=== PATIENT | female | born 1965 | race Asian ===

== ENCOUNTER 2023-11-17 13:54 | Emergency (ER) | payer OTHER ==
[2023-11-17 14:06] VITALS: BP 158/86; PULSE 96; RESP 18; TEMP 97.6; BMI 28.8
[2023-11-17] MEDS ORDERED: ACETAMINOPHEN INJECTION 100 ML IVPB ONE (15:26)
[2023-11-17] MEDS ORDERED: FAMOTIDINE 10 MG/ML VIAL IVPB ONE (15:27)
[2023-11-17 15:31] LABS: BASO % 0.3 % (0-2.0); EOS % 0.2 % (0-4.5); HEMOGLOBIN 13.7 GM/dL (10.7-15.3); LYMPH % 13.7 % (8-40); MCH 30.1 pg (25.7-33.7); MCHC 35.1 g/dl (32.0-36.0); MEAN CELL VOLUME 85.9 fl (80-96); MEAN PLT VOLUME 6.7 fl (7.5-11.1); MONO % 5.1 % (3.8-10.2); NEUT % 80.7 % (42.8-82.8); PLATELET COUNT 315 10^3/uL (134-434); RBC 4.54 M/mm3 (3.60-5.2); RDW 13.3 % (11.6-15.6); WHITE BLOOD COUNT 10.3 K/mm3 (4.0-10.0)
[2023-11-17] MEDS: ACETAMINOPHEN 1000 MG/100 ML BAG IVPB ONE (15:36)
[2023-11-17] MEDS: LACTATED RINGERS SOLUTION 1000 ML INFUS.BAG IV ONE (15:36)
[2023-11-17] MEDS: FAMOTIDINE 20 MG/50 ML IVPB 20 MG/50 ML MG IVPB ONE (15:37)
[2023-11-17 15:51] LABS: POTASSIUM 3.5 mmol/L (3.5-5.1)
[2023-11-17 15:53] LABS: CALCIUM 9.6 mg/dL (8.5-10.1)
[2023-11-17 15:54] LABS: ALBUMIN 4.7 g/dl (3.4-5.0); BLOOD UREA NITROGEN 11.6 mg/dL (7-18); MAGNESIUM 2.2 mg/dL (1.8-2.4)
[2023-11-17 15:57] LABS: CREATININE 0.7 mg/dL (0.55-1.3)
[2023-11-17 15:58] LABS: BILIRUBIN,TOTAL 0.8 mg/dL (0.2-1)
[2023-11-17 15:59] LABS: TOT PROT 8.5 g/dl (6.4-8.2)
[2023-11-17] MEDS ORDERED: MAG HYDROX/AL HYDROX/SIMETH 30 ML UNIT-DOSE CUP ONE (18:14)
[2023-11-17] MEDS ORDERED: PANTOPRAZOLE 40 MG TABLET PO ONE (18:14)
[2023-11-17] MEDS: PANTOPRAZOLE 20 MG TABLET PO ONE (18:15)
[2023-11-17] MEDS: MAG HYDROX/AL HYDROX/SIMETH 30 ML UNIT-DOSE CUP PO ONE (18:15)
== END 2023-11-17 20:05 | disposition home or self-care (01) ==
LOC: JER 13:54
PROC: 3E033GC Introduction of Other Therapeutic Substance into Peripheral Vein, Percutaneous Approach (ICD-10-PCS; principal; 2023-11-17)
PROC: 3E033NZ Introduction of Analgesics, Hypnotics, Sedatives into Peripheral Vein, Percutaneous Approach (ICD-10-PCS; 2023-11-17)
DX: R10.13 Epigastric pain (principal)
CPT/HCPCS: 36415; 71045-TC-FY; 76705-TC; 80053; 83690; 83735; 84484; 85025; 93005; 93010; 99285-25; J0131

== ENCOUNTER 2023-11-23 04:22 | Day surgery (SDC) | payer OTHER ==
[2023-11-22 13:14] VITALS: BMI 24.5
[2023-11-23 11:00] VITALS: TEMP 97.6
[2023-11-23 11:27] VITALS: BP 129/64; PULSE 65; RESP 14
== END 2023-11-23 11:40 | disposition home or self-care (01) ==
LOC: JASU-ENDO 04:22
PROVIDERS: ATTEND Internal Medicine Gastroenterology
PROC: 0DB98ZX Excision of Duodenum, Via Natural or Artificial Opening Endoscopic, Diagnostic (ICD-10-PCS; 2023-11-23)
PROC: 0DB78ZX Excision of Stomach, Pylorus, Via Natural or Artificial Opening Endoscopic, Diagnostic (ICD-10-PCS; 2023-11-23)
PROC: 0DB68ZX Excision of Stomach, Via Natural or Artificial Opening Endoscopic, Diagnostic (ICD-10-PCS; 2023-11-23)
PROC: 0DJD8ZZ Inspection of Lower Intestinal Tract, Via Natural or Artificial Opening Endoscopic (ICD-10-PCS; principal; 2023-11-23 11:00)
DX: Z12.11 Encounter for screening for malignant neoplasm of colon (principal); K31.7 Polyp of stomach and duodenum; K29.50 Unspecified chronic gastritis without bleeding; K30 Functional dyspepsia; I10 Essential (primary) hypertension
CPT/HCPCS: 88305-TC; 88342-TC